=== PATIENT | female | born 1970 | race Two or more races ===

== ENCOUNTER → 2019-08-16 07:52 | Outpatient (CLI) | payer OTHER | END | disposition home or self-care (01) | LOC: LAB 07:52 | PROVIDERS: ATTEND Specialist | DX: Z01.811 Encounter for preprocedural respiratory examination (principal); Z01.810 Encounter for preprocedural cardiovascular examination; D50.8 Other iron deficiency anemias; E83.51 Hypocalcemia; E78.00 Pure hypercholesterolemia, unspecified; N39.0 Urinary tract infection, site not specified; E03.8 Other specified hypothyroidism; D68.8 Other specified coagulation defects ==

== ENCOUNTER 2019-08-16 08:49 | Outpatient (CLI) | payer OTHER | END 2019-08-16 09:09 | disposition home or self-care (01) | LOC: SONOGRAMA 08:49 | PROVIDERS: ATTEND Surgery | DX: N60.11 Diffuse cystic mastopathy of right breast (principal); N60.12 Diffuse cystic mastopathy of left breast; N63.11 Unspecified lump in the right breast, upper outer quadrant ==

== ENCOUNTER 2019-08-29 07:46 | Inpatient (IN) | payer OTHER ==
[~2019-08-29] VITALS: Ht 165.1 cm; Wt 69.9 kg
[2019-09-01] MEDS ORDERED: PERCOCET 5-3251 EACH PO (06:38)
== END 2019-09-01 08:23 | DRG 743 ==
LOC: OB/GYN 08-30 05:00 → O/R 08-30 05:00 → RECOVERY 08-30 07:00 → OB/GYN 08-30 10:28 → RECOVERY 08-30 13:07 → OB/GYN 08-30 13:25
PROVIDERS: ADMIT Specialist; ATTEND Specialist
PROC: 0UT90ZZ Resection of Uterus, Open Approach (ICD-10-PCS; principal; 2019-08-30 07:00)
DX: D25.1 Intramural leiomyoma of uterus (principal); D25.0 Submucous leiomyoma of uterus; D25.2 Subserosal leiomyoma of uterus

== ENCOUNTER 2019-09-08 14:26 | Emergency (ER) | payer OTHER ==
[~2019-09-08] VITALS: Ht 165.1 cm; Wt 69.9 kg
[~2019-09-08 14:26] MED LIST: PERCOCET 5-3251 EACH PO
== END 2019-09-08 20:28 | disposition home or self-care (01) ==
LOC: ER 14:26
DX: R42 Dizziness and giddiness (principal); R53.1 Weakness; T39.1X5A Adverse effect of 4-Aminophenol derivatives, initial encounter; T40.2X5A Adverse effect of other opioids, initial encounter; Y92.89 Other specified places as the place of occurrence of the external cause

== ENCOUNTER 2021-02-09 23:49 | Emergency (ER) | payer OTHER ==
[~2021-02-09] VITALS: Ht 165.1 cm; Wt 68.0 kg
[2021-02-10] MEDS ORDERED: ORASEP SPRAY30 ML MM (05:07)
[2021-02-10] MEDS ORDERED: ZYNCOF 20-400120 ML PO (05:07)
== END 2021-02-10 05:13 | disposition home or self-care (01) ==
LOC: ER 23:49
DX: U07.1 COVID-19 (principal); R07.0 Pain in throat; Z20.822 Contact with and (suspected) exposure to COVID-19